=== PATIENT | male | born 1950 | race Caucasian/White ===

== ENCOUNTER 2018-05-12 13:04 | Day surgery (SDC) | payer MEDICARE, OTHER ==
[~2018-05-12] VITALS: Ht 170.2 cm; Wt 98.2 kg
[~2018-05-12 13:04] MED LIST: ALLEGRA 60MG TA60 MG PO; AQUAPHOR1 OIN TOP; ASPIRIN 81M81 MG/TA2 PO; CLARITIN 1010 MG/TAB PO; COUMADIN 1010 MG/TAB PO; COUMADIN 77.5 MG/TAB PO; FLONASE NASAL S16 GM NS; IMDUR 30MG30 MG/TAB PO; LASIX 40MG TABL40 MG PO; LIPITOR 40MG TA40 MG PO; LOPRESSOR 550 MG/TAB PO; MASON NATURAL2000 IU PO; NICODERM C21 MG/PATC TOP; NITROLINGU0.4 MG/ACT SL; PLAVIX 75MG TAB75 MG PO; PRILOSEC 20MG20 MG PO; PROCARDIA XL 6060 MG PO; RANEXA 500MG T500 MG PO; TOPROL XL 25MG25 MG PO; ZANTAC 7575 MG PO; ZESTRIL 5MG5 MG PO; ZOCOR 20MG20 MG PO
[2018-05-12] MEDS ORDERED: MEXITIL 150MG150 MG PO (13:29)
[2018-05-12] MEDS ORDERED: PLETAL50 MG PO (13:30)
[2018-05-12] MEDS ORDERED: STIOLTO RESPIMAT4 GM IH (13:31)
[2018-05-12 13:56] VITALS: BP 144/92; PULSE 100; TEMP 97.3
[2018-05-12 15:15] VITALS: BP 114/79; PULSE 94; TEMP 97
[2018-05-12 15:30] VITALS: BP 92/71; PULSE 79
[2018-05-12 15:45] VITALS: BP 114/61; PULSE 92
[2018-05-12 16:00] VITALS: BP 115/81; PULSE 79
== END 2018-05-12 16:36 | disposition home or self-care (01) ==
LOC: SDCO 13:04
DX: K22.70 Barrett's esophagus without dysplasia (principal); K21.9 Gastro-esophageal reflux disease without esophagitis; K44.9 Diaphragmatic hernia without obstruction or gangrene; K29.30 Chronic superficial gastritis without bleeding; I10 Essential (primary) hypertension; E78.00 Pure hypercholesterolemia, unspecified; I25.10 Atherosclerotic heart disease of native coronary artery without angina pectoris; Z95.1 Presence of aortocoronary bypass graft; Z95.5 Presence of coronary angioplasty implant and graft; Z79.899 Other long term (current) drug therapy; Z79.82 Long term (current) use of aspirin
CPT/HCPCS: J2250; J3010; J7030

== ENCOUNTER → 2018-10-16 | Outpatient (CLI) | payer MEDICARE, OTHER ==
[~2018-10-16] MED LIST changes: +MEXITIL 150MG150 MG PO; +PLETAL50 MG PO; +STIOLTO RESPIMAT4 GM IH
[2018-10-16 13:50] LABS: HEMATOCRIT 37.9 % (42.0-52.0); HEMOGLOBIN 12.9 g/dl (13.5-18.0); MEAN CELL VOLUME 98 fl (80.0-100.0); MEAN CORPUSCULAR HEMOGLOBIN 33 pg (27.0-31.0); MEAN CORPUSCULAR HGB CONC 34 g/dl (33.0-37.0); MEAN PLATELET VOLUME 9.6 fl (7.4-10.4); PLATELET COUNT 140 K/mm3 (130-400); RED BLOOD COUNT 3.88 M/mm3 (4.20-5.60)
[2018-10-16 14:19] LABS: CALCIUM 9.4 mg/dL (8.4-10.2); CREATININE, serum 1.57 mg/dL (0.66-1.25); POTASSIUM 4.8 mmol/L (3.4-5.0)
== END ==
LOC: COL.LAB 12:59
PROVIDERS: Internal Medicine Interventional Cardiology
DX: I82.531 Chronic embolism and thrombosis of right popliteal vein (principal)

== ENCOUNTER → 2018-11-11 | Outpatient (CLI) | payer MEDICARE, OTHER | LOC: COL.VAS 09:25 | DX: I73.9 Peripheral vascular disease, unspecified (principal) ==

== ENCOUNTER → 2019-01-05 | Outpatient (CLI) | payer MEDICARE, OTHER ==
[2019-01-05 13:28] LABS: HEMATOCRIT 37.8 % (42.0-52.0); HEMOGLOBIN 12.7 g/dl (13.5-18.0); MEAN CELL VOLUME 101 fl (80.0-100.0); MEAN CORPUSCULAR HEMOGLOBIN 34 pg (27.0-31.0); MEAN CORPUSCULAR HGB CONC 34 g/dl (33.0-37.0); PLATELET COUNT 147 K/mm3 (130-400); RED BLOOD COUNT 3.76 M/mm3 (4.20-5.60); REDCELL DISTRIBUTION WIDTH-CV 12.7 % (11.5-14.5)
[2019-01-05 13:38] LABS: ALBUMIN 4.1 gm/dL (3.5-5.0); BILIRUBIN,TOTAL 0.8 mg/dL (0.0-1.0); CALCIUM 9.2 mg/dL (8.4-10.2); CREATININE, serum 1.53 (0.66-1.25); POTASSIUM 4.6 mmol/L (3.4-5.0); TOTAL PROTEIN 7.4 gm/dL (6.4-8.2)
== END ==
LOC: COL.LAB 13:11
PROVIDERS: Internal Medicine Interventional Cardiology
DX: I73.9 Peripheral vascular disease, unspecified (principal)

== ENCOUNTER → 2019-02-09 | Outpatient (CLI) | payer MEDICARE, OTHER ==
[2019-02-09 12:46] LABS: HEMATOCRIT 37.9 % (42.0-52.0); HEMOGLOBIN 12.9 g/dl (13.5-18.0); MEAN CELL VOLUME 99 fl (80.0-100.0); MEAN CORPUSCULAR HEMOGLOBIN 34 pg (27.0-31.0); MEAN CORPUSCULAR HGB CONC 34 g/dl (33.0-37.0); MEAN PLATELET VOLUME 9.3 fl (7.4-10.4); PLATELET COUNT 159 K/mm3 (130-400); RED BLOOD COUNT 3.82 M/mm3 (4.20-5.60)
[2019-02-09 12:56] LABS: ALBUMIN 4.3 gm/dL (3.5-5.0); BILIRUBIN,TOTAL 0.7 mg/dL (0.0-1.0); CALCIUM 9.5 mg/dL (8.4-10.2); CREATININE, serum 1.59 (0.66-1.25); POTASSIUM 4.6 mmol/L (3.4-5.0); TOTAL PROTEIN 7.5 gm/dL (6.4-8.2)
== END ==
LOC: COL.LAB 12:18
PROVIDERS: Internal Medicine Interventional Cardiology
DX: I25.10 Atherosclerotic heart disease of native coronary artery without angina pectoris (principal)

== ENCOUNTER → 2020-07-05 | Outpatient (CLI) | payer MEDICARE, OTHER ==
[2020-07-05 14:11] LABS: TROPONIN-I < 0.012 ng/mL (0.000-0.035)
== END ==
LOC: ZCOL.LAB 13:35
PROVIDERS: Internal Medicine Interventional Cardiology
DX: E55.9 Vitamin D deficiency, unspecified (principal); R06.02 Shortness of breath

== ENCOUNTER → 2020-07-21 | Day surgery (SDC) | payer MEDICARE, OTHER ==
[~2020-07-21] VITALS: Ht 170.2 cm; Wt 98.5 kg
[2020-07-21] VITALS (11 sets, daily range): BP systolic 89–129; BP diastolic 55–87; PULSE 69–85; TEMP 97.9
[~2020-07-21] MED LIST changes: -LOPRESSOR 550 MG/TAB PO; -PRILOSEC 20MG20 MG PO; +PROTONIX 40MG T40 MG PO; +TOPROL XL100 MG PO
[2020-07-21 13:15] LABS: HEMOGLOBIN 12.5 g/dl (13.5-18.0); MEAN CELL VOLUME 99 fl (80.0-100.0); MEAN CORPUSCULAR HEMOGLOBIN 34 pg (27.0-31.0); MEAN CORPUSCULAR HGB CONC 34 g/dl (33.0-37.0); MEAN PLATELET VOLUME 9.3 fl (7.4-10.4); PLATELET COUNT 139 K/mm3 (130-400); REDCELL DISTRIBUTION WIDTH-CV 13.2 % (11.5-14.5)
[2020-07-21 13:17] LABS: HEMATOCRIT 36.6 % (42.0-52.0)
[2020-07-21 13:18] LABS: CALCIUM 9.4 mg/dL (8.4-10.2); CREATININE, serum 1.39 (0.66-1.25); INR 1.2 (0.8-3.0); POTASSIUM 4.9 mmol/L (3.4-5.0); PROTHROMBIN TIME 12.9 SECONDS (9.7-12.8)
--- NOTE | 2020-07-21 13:45 | NUR ---
SEE MERGE DOCUMENTATION FOR MEDICATION ADMINISTRATION TIMES AND INTRA/POST PROCEDURE SEDATION ASSESSMENTS. LEFT HAND BARBEAU TEST POSITIVE. BILATERAL DP PULSES LOCATED VIA DOPPLER.
--- NOTE | 2020-07-21 15:15 | NUR ---
Pt is back from [employer], bs report from Oscar MORIN. Pt is gcs 15, pwd, no complaints. TR band to left wrist, compressing left ulnar artery, cms intact distal, some discoloration to fingers 2-4, but TORCH SOLDERER <3 seconds, sensation intact, good pleth on pulse ox monitor. wctm. lunch ordered. call light in reach. telesales advisor notified of need to monitor patient who is in sinus rhythm at this time.
--- NOTE | 2020-07-21 19:46 | NUR ---
Pt has done well during his recovery. TR band was deflated with no problems, and left ulnar puncture site was dressed with a bandaid, folded 2x2 and coban for mild compression dressing. Pt has been ambulatory in his room with steady gait, he has eaten with no problem, and took a nice nap. IV was dc'd with cath intact, dressing was applied. I reviewed dc and fu instructions with pt who verbalized understanding. Pt was escorted to exit via wheelchair where his picked him up.
== END ==
LOC: COL.CAR 11:53
PROVIDERS: Internal Medicine Interventional Cardiology
DX: I25.10 Atherosclerotic heart disease of native coronary artery without angina pectoris (principal); I73.9 Peripheral vascular disease, unspecified; R94.39 Abnormal result of other cardiovascular function study; R53.83 Other fatigue; I25.2 Old myocardial infarction; I10 Essential (primary) hypertension; E78.5 Hyperlipidemia, unspecified; F17.210 Nicotine dependence, cigarettes, uncomplicated; Z79.82 Long term (current) use of aspirin; Z79.02 Long term (current) use of antithrombotics/antiplatelets; Z95.1 Presence of aortocoronary bypass graft
CPT/HCPCS: J1644; J2250; J3010; Q9967

== ENCOUNTER 2020-09-26 09:06 | Outpatient (RCR) | payer MEDICARE, OTHER ==
--- NOTE | 2020-09-22 12:22 | NUR ---
LMOM WITH INSTRUCTIONS AND CALL BACK NUMBER. PT IS ON PLAVIX.
--- NOTE | 2020-09-22 14:04 | NUR ---
SPOKE TO PT AND WENT OVER INSTRUCTIONS, MEDS AND ALLERGIES. PT HAS A LUBRICATING SPECIALIST
[~2020-09-26] VITALS: Ht 170.2 cm; Wt 96.3 kg
[2020-09-26] VITALS (25 sets, daily range): BP systolic 92–131; BP diastolic 41–81; PULSE 72–91
[2020-09-26] MEDS ORDERED: MASON NATURAL2000 IU PO (09:48)
--- NOTE | 2020-09-26 10:45 | NUR ---
DR MAN PRESENT
--- NOTE | 2020-09-26 10:50 | NUR ---
FENTANYL [address] MAN
--- NOTE | 2020-09-26 11:05 | NUR ---
PT HAS SMALL PNUEMO AND WAS GIVEN 25 MCG FOR DISCOMFORT
--- NOTE | 2020-09-26 14:15 | NUR ---
Oxygen increased to 6L/min per verbal instruction of Dr Can. He states he would like oxygen to run between 4-6L/min as pt can tolerate. Will repeat CXR at 1530. Pt aware. Call light in reach.
--- NOTE | 2020-09-26 16:04 | NUR ---
Pt ambulated to restroom while observed by Dr. Hudson. Gait steady with cane. Pt denies any shortness of air worse than his usual or increased chest pain. Upon return to room, sats range from 89-91% on room air. Over several minutes sats improve to 94-95% on room air. Return instructions reviewed at length with pt by nurse and radiologist, pt expresses understaning.
--- NOTE | 2020-09-26 16:45 | NUR ---
Pt assisted out by wheelchair to 's car. Respirations remains even and unlabored, he denies shortness of breath. He will return tomorrow morning for repeat chest xray.
--- NOTE | 2020-09-26 16:50 | NUR ---
PROCEDURE COMPLETE. DR REILLY TOOK SEVERAL SAMPLES
== END 2020-12-25 | disposition still patient (30) ==
LOC: COL.RAD
DX: J93.9 Pneumothorax, unspecified (principal); R91.1 Solitary pulmonary nodule; Z95.1 Presence of aortocoronary bypass graft
CPT/HCPCS: J3010

== ENCOUNTER → 2020-10-02 | Outpatient (CLI) | payer MEDICARE, OTHER | LOC: COL.RAD | DX: J93.9 Pneumothorax, unspecified (principal) ==

== ENCOUNTER → 2020-10-06 | Outpatient (CLI) | payer MEDICARE, OTHER | LOC: COL.RAD | DX: J93.9 Pneumothorax, unspecified (principal) ==

== ENCOUNTER → 2020-10-13 | Outpatient (CLI) | payer MEDICARE, OTHER | LOC: COL.RAD 11:28 | DX: J93.9 Pneumothorax, unspecified (principal); Z95.1 Presence of aortocoronary bypass graft ==

== ENCOUNTER 2022-01-13 02:06 | Inpatient (IN) | payer MEDICARE, OTHER ==
[2022-01-13] VITALS (10 sets, daily range): BP systolic 103–128; BP diastolic 65–86; PULSE 16–100; TEMP 97.6–98.2
[~2022-01-13] VITALS: Ht 170.2 cm; Wt 95.3 kg
[2022-01-13 02:35] LABS: BASO % 0.4 % (0.0-2.0); EOS % 0.5 % (0.0-4.0); GRAN % 77.4 % (42.2-75.2); HEMOGLOBIN 11.9 g/dl (13.5-18.0); LYMPH # 1.1 K/mm3 (1.2-3.4); MEAN CELL VOLUME 95 fl (80.0-100.0); MEAN CORPUSCULAR HEMOGLOBIN 31 pg (27-31); MEAN CORPUSCULAR HGB CONC 32 g/dl (33.0-37.0); MEAN PLATELET VOLUME 10.1 fl (7.4-10.4); MONO # 0.6 K/mm3 (0.1-0.6); MONO % 7.3 % (1.7-9.3); PLATELET COUNT 163 K/mm3 (130-400); RED BLOOD COUNT 3.88 M/mm3 (4.20-5.60); REDCELL DISTRIBUTION WIDTH-CV 15.2 % (11.5-14.5)
[2022-01-13 02:40] LABS: HEMATOCRIT 36.9 % (42.0-52.0)
[2022-01-13 02:53] LABS: ALBUMIN 3.5 gm/dL (3.4-4.8); BILIRUBIN,TOTAL 1.2 mg/dL (0.2-1.2); CALCIUM 9.2 mg/dL (8.4-10.2); CREATININE, serum 1.64 mg/dL (0.72-1.25); POTASSIUM 4.4 mmol/L (3.5-4.5)
[2022-01-13 05:15] LABS: COLLECTION METHOD CLEAN CATCH
[2022-01-13 05:38] LABS: MUCOUS Present (NOT PRESENT); PH 6 (5-8); SQUAMOUS EPITHELIAL 0-2 /hpf (0-10); URINE APPEARANCE Clear (CLEAR/HAZY); URINE BACTERIA None Seen /hpf (NONE SEEN); URINE BILIRUBIN Negative (NEGATIVE); URINE BLOOD Negative (NEGATIVE); URINE COLOR Yellow (YELLOW); URINE GLUCOSE Negative (NEGATIVE); URINE KETONE Negative (NEGATIVE); URINE LEUKOCYTE ESTERASE Negative (NEGATIVE); URINE NITRATE Negative (NEGATIVE); URINE PROTEIN(semi-quant) Negative (NEGATIVE); URINE RBC None Seen /hpf (0-2)
--- NOTE | 2022-01-13 07:09 | NUR ---
PATIENT UP TO ROOM 323 AT 0600. ALERT AND ORIENTED. AMBULATED TO BATHROOM X1 ASSIST WITH CANE AND HAD UNMEASURED CLEAR YELLOW VOID. AMBULATED BACK TO BED. 2L O2 VIA NC. IV TO L WRIST PATENT AND FLUSHED. CHANGED TO YELLOW GOWN AND SOCKS, FALL RISKS IN PLACE. MED RX COMPLETED. ADMISSION ASSESSMENT COMPLETED. SHIFT REPORT TO DAY SHIFT.
--- NOTE | 2022-01-13 09:40 | NUR ---
PT HAD PANIC ATTACK THIS AM. STAFF ABLE TO CALM PT DOWN AND THEN TRANSFER TO RECLINER. PT MUCH CALMER SITTING UP IN RECLINER. PT BECAME SOB WHLIE LAYING IN BED WHICH LED TO PANIC FEELING FOR PT.
--- NOTE | 2022-01-13 11:41 | NUR ---
ASSISTED DR QUIROGA WITH BEDSIDE THRORACENTESIS, 860 MLS OF FLUIDS REMOVED AND SENT TO LAB. PT TOLERATED WELL, PT ON POST OP VITALS PER ORDER.
[2022-01-13 12:10] LABS: PLEURAL FLUID RBC 1000 /mm3 (0-0); PLEURAL FLUID WBC 357 /mm3
[2022-01-13 12:11] LABS: PLEURAL FLUID APPEARANCE CLEAR; PLEURAL FLUID COLOR YELLOW
--- NOTE | 2022-01-13 13:20 | NUR ---
RASHMI met with pt to complete intake. Pt lives at home with his , "SON" [phone]. Pt reports he is independent on ADLs, but does use a cane, shower sool, CPAP. Pt reports he gets services from [place] and medications from [facility]. PA is Anitta from [place]. Pt reports no DPOA-HC and is waiting until February when hes family comes to complete WILL. PT recommends SNF. Referral faxed to [facility] and [facility]. DC: pending referrals.
--- NOTE | 2022-01-13 21:00 | NUR ---
PT SITTING UP IN RECLINER AT BEDSIDE. IS ALERT AND ORIENTED X4. HAS O2 @1L/NC. HAS LARGE BANDAID TO LEFT POSTERIOR BACK S/P THORACENTESIS. HAS BLE PITTING EDEMA FROM FEET TO THIGHS. ABD DISTENDED AND TIGHT. VOIDING PER URINAL YELLOW URINE. INT TO LFA, FLUSHES WELL, IV LASIX GIVEN. BRUISES TO BILATERAL ARMS. HAS DISCOLORATED LOWER LEGS R/T PVD. HAS CPAP FROM HOME.
[2022-01-14] VITALS (7 sets, daily range): BP systolic 109–127; BP diastolic 65–94; PULSE 75–118; TEMP 97.7–98
--- NOTE | 2022-01-14 06:00 | NUR ---
PT SITTING AT BEDSIDE, AM MED GIVEN. DENIES PAIN AT THIS TIME.
[2022-01-14 06:29] LABS: BASO % 0.2 % (0.0-2.0); GRAN # 4.1 K/mm3 (1.4-6.5); GRAN % 89.5 % (42.2-75.2); HEMOGLOBIN 10.8 g/dl (13.5-18.0); LYMPH # 0.4 K/mm3 (1.2-3.4); LYMPH % 7.9 % (20.0-51.0); MEAN CELL VOLUME 95 fl (80.0-100.0); MEAN CORPUSCULAR HEMOGLOBIN 31 pg (27-31); MEAN CORPUSCULAR HGB CONC 33 g/dl (33.0-37.0); MEAN PLATELET VOLUME 9.9 fl (7.4-10.4); MONO # 0.1 K/mm3 (0.1-0.6); MONO % 2.2 % (1.7-9.3); PLATELET COUNT 157 K/mm3 (130-400); RED BLOOD COUNT 3.47 M/mm3 (4.20-5.60)
[2022-01-14 06:42] LABS: CALCIUM 9.2 mg/dL (8.4-10.2); CREATININE, serum 1.89 mg/dL (0.72-1.25); POTASSIUM 3.7 mmol/L (3.5-4.5)
[2022-01-14 06:49] LABS: HEMATOCRIT 33.1 % (42.0-52.0)
--- NOTE | 2022-01-14 10:02 | NUR ---
Initial visit; Patient thanked Accountant Controller for looking in on her and offering God's blessings. Patient was receptive to having Accountant Controller keep him in her prayers.
[2022-01-14 11:17] LABS: THYROID STIMULATING HORMONE 1.555 uIU/mL (0.350-4.940)
--- NOTE | 2022-01-14 12:51 | NUR ---
PATIENT ALERT AND ORIENTED X3. VSS. PATIENT DENIES ANY PAIN. PATIENT ON 2L O2. ASSESSMENT PERFORMED. AM MEDS ADMINISTERED. PATIENT INSTRUCTED ON NPO DUE TO MOOK PROCEDURE. CONSENT OBTAINED. PATIENT DENIED ANY QUESTIONS OR CONCERNS. CALL LIGHT WITHIN REACH. CHAIR ALARM ON.
--- NOTE | 2022-01-14 14:24 | NUR ---
Marlee, at [facility], reports that they are full at this time. RASHMI met with the patient, his , and daughter (June, ph#[phone]) to review discharge plan and to update on referrals. The patient would like to see how he does after his procedure today and what the team recommends, but he is open to SNF at [facility]. He is still comtemplating home with home health. The patient's family is supportive of his decision. RASHMI contacted and faxed updates to Marv at [facility]. They are still reviewing the referral. *Discharge plan: SNF vs home health*
--- NOTE | 2022-01-14 15:19 | NUR ---
Marlee, at [facility], reports that they may have a bed available by the end of this week. RASHMI faxed [facility] updates.
--- NOTE | 2022-01-14 17:16 | NUR ---
PATIENT OFF OF FLOOR FOR PROCEDURE
[2022-01-14 17:45] LABS: BODY FLUID PH (AMS) 8 (())
[2022-01-15] VITALS (7 sets, daily range): BP systolic 112–146; BP diastolic 80–89; PULSE 73–107; TEMP 97.5–98.4
--- NOTE | 2022-01-15 00:12 | NUR ---
Recently received report. Pt was resting with eyes closed, even non labored breathing. No complaints of pain at this time. Pt does have CPAP on, O2 sats 88% at this time. Notified RT which placed him on 2L with CPAP. Pt continues to be resting and fell back asleep after assessment/vitals. No complaints or needs verbalized, call light within reach
[2022-01-15 07:04] LABS: GRAN % 89.6 % (42.2-75.2); HEMOGLOBIN 10.8 g/dl (13.5-18.0); LYMPH % 6.1 % (20.0-51.0); MEAN CELL VOLUME 96 fl (80.0-100.0); MEAN CORPUSCULAR HEMOGLOBIN 31 pg (27-31); MEAN CORPUSCULAR HGB CONC 32 g/dl (33.0-37.0); MEAN PLATELET VOLUME 10.2 fl (7.4-10.4); MONO # 0.2 K/mm3 (0.1-0.6); MONO % 3.8 % (1.7-9.3); PLATELET COUNT 160 K/mm3 (130-400); RED BLOOD COUNT 3.51 M/mm3 (4.20-5.60); REDCELL DISTRIBUTION WIDTH-CV 15.2 % (11.5-14.5)
[2022-01-15 07:06] LABS: CALCIUM 9.8 mg/dL (8.4-10.2); CREATININE, serum 2.48 mg/dL (0.72-1.25)
--- NOTE | 2022-01-15 07:20 | NUR ---
INCREASING CREAT AND BUN LEVELS REPORTED TO MCKENNA HALL. PATIENT NOTED TO HAVE HISTORY OF CKD WITH BASELINE CREAT OF 1.4. LEVELS CONT TO RISE DAILY. LASIX BEING HELD AT THIS TIME DUE TO THIS. TO POSSIBLY CONSULT NEPHRO
[2022-01-15 07:23] LABS: HEMATOCRIT 33.7 % (42.0-52.0)
[2022-01-15 07:24] LABS: LYMPH # 0.3 K/mm3 (1.2-3.4)
--- NOTE | 2022-01-15 11:30 | NUR ---
Roxane: Bahai Situation: Pastry Sous Chef went to room on rounds Background: PT had his and daughter in the room with him. Pastry Sous Chef prayed with all three. Assessment: All included appreciated the visit Recommendation: Pastry Sous Chef will follow up as needed
--- NOTE | 2022-01-15 13:34 | NUR ---
SW faxed updates to [facility] and [facility].
--- NOTE | 2022-01-15 13:49 | NUR ---
Marv, at [facility], reports that they can accept the patient for a skilled stay.
--- NOTE | 2022-01-15 15:00 | NUR ---
CALL RECIEVED FROM DR PABLO TO GIVE PATIENT A ONE TIME 40MG IV DOSE OF LASIX DUE TO FLUID BUILD UP AND EDEMA. WILL CONT TO MONITOR KIDNEY FUNCTION AND URINE OUTPUT.
--- NOTE | 2022-01-15 20:50 | NUR ---
Pt. sitting up at side of bed. Pt. is a&OX3, assessment complete. INT to lt forearm patent. Pt. assisted to and from the bathroom with standby assist and walker. Pt. does get SOA with ambulation. Pt. on 2L NC. Pt. repositions for comfort. Pt. denies further needs, call light within reach.
[2022-01-16 03:46] VITALS: BP 158/89; PULSE 79; TEMP 98.3
[2022-01-16 06:28] LABS: HEMOGLOBIN 11.1 g/dl (13.5-18.0); MEAN CELL VOLUME 96 fl (80.0-100.0); MEAN CORPUSCULAR HEMOGLOBIN 31 pg (27-31); MEAN CORPUSCULAR HGB CONC 32 g/dl (33.0-37.0); MEAN PLATELET VOLUME 10.1 fl (7.4-10.4); PLATELET COUNT 154 K/mm3 (130-400); REDCELL DISTRIBUTION WIDTH-CV 15.1 % (11.5-14.5)
[2022-01-16 06:31] LABS: HEMATOCRIT 34.6 % (42.0-52.0)
[2022-01-16 06:43] LABS: ALBUMIN 3.1 gm/dL (3.4-4.8); CALCIUM 9.2 mg/dL (8.4-10.2); CREATININE, serum 2.74 mg/dL (0.72-1.25); MAGNESIUM 2.5 mg/dL (1.6-2.6); PHOSPHOROUS 5.7 mg/dL (2.3-4.7); POTASSIUM 4.4 mmol/L (3.5-4.5)
[2022-01-16 07:48] VITALS: BP 151/83; PULSE 76; TEMP 98.9
[2022-01-16 07:58] LABS: LYMPHOCYTE 8 % (20.0-51.0); NEUTROPHILS 88 % (42.0-75.2)
[2022-01-16 08:02] LABS: PLATELET ESTIMATE NORMAL (NORMAL)
--- NOTE | 2022-01-16 09:00 | NUR ---
Pt doing okay this morning. He has no complaints of pain. Pt using CPAP with O2 at night and O2 per NC during the day. He is on 2L. Pt is standby assist to the bathroom. Tolerating breakfast with no complaints. Pt reports that his daughter will be here later this am. No needs verbalized, will continue to monitor
[2022-01-16 11:50] VITALS: BP 138/87; PULSE 75; TEMP 97.4
--- NOTE | 2022-01-16 13:00 | NUR ---
Hosp and cardiology has been in to see pt, new orders received. Dr Stafford did talk with pts daughter, Antonella, on the phone with updates. All questions answered.
--- NOTE | 2022-01-16 13:47 | NUR ---
RASHMI met with the patient to update on [facility] acceptance. The patient verbalized understanding and states that he would like to go ahead and pursue SNF at [facility]. SW faxed updates to [facility] and [facility]. *Discharge plan: [facility] SNF*
[2022-01-16 15:21] VITALS: BP 134/82; PULSE 66; TEMP 97.5
--- NOTE | 2022-01-16 16:00 | NUR ---
Pt moved to another room so that computer mount can be changed. Pt getting tired and is hoping to get some rest. New IV was started in his left forearm, previous IV was leaking. PATIENCE Iraheta with nephrology was in to see pt, new orders wrote. Pt verbalized understanding on the fluid restrictions.
[2022-01-16 19:19] VITALS: BP 139/80; PULSE 66; TEMP 97.6
--- NOTE | 2022-01-16 22:02 | NUR ---
Pt is sitting up in his recliner during shift exchange. Assessment and medication administration completed without difficulty. Pt is A&Ox4 and pleasant. Pt denies pain at this time but does exhibit dyspnea on exertion when ambulating to the restroom. All other needs met at this time, call light within reach.
[2022-01-16 23:51] VITALS: BP 149/93; PULSE 65; TEMP 98
[2022-01-17 02:53] VITALS: BP 145/91; PULSE 66
[2022-01-17 06:41] LABS: GRAN # 5.3 K/mm3 (1.4-6.5); HEMOGLOBIN 11.9 g/dl (13.5-18.0); LYMPH # 0.3 K/mm3 (1.2-3.4); LYMPH % 5.5 % (20.0-51.0); MEAN CELL VOLUME 94 fl (80.0-100.0); MEAN CORPUSCULAR HEMOGLOBIN 31 pg (27-31); MEAN CORPUSCULAR HGB CONC 33 g/dl (33.0-37.0); MEAN PLATELET VOLUME 10.2 fl (7.4-10.4); MONO # 0.3 K/mm3 (0.1-0.6); MONO % 5.5 % (1.7-9.3); PLATELET COUNT 145 K/mm3 (130-400); RED BLOOD COUNT 3.87 M/mm3 (4.20-5.60); REDCELL DISTRIBUTION WIDTH-CV 14.8 % (11.5-14.5)
[2022-01-17 06:48] LABS: HEMATOCRIT 36.2 % (42.0-52.0)
[2022-01-17 07:04] LABS: ALBUMIN 3.2 gm/dL (3.4-4.8); CALCIUM 9.3 mg/dL (8.4-10.2); CREATININE, serum 2.82 mg/dL (0.72-1.25); MAGNESIUM 2.8 mg/dL (1.6-2.6); PHOSPHOROUS 5.6 mg/dL (2.3-4.7); POTASSIUM 4.5 mmol/L (3.5-4.5)
[2022-01-17 07:34] VITALS: BP 154/92; PULSE 67; TEMP 97.6
--- NOTE | 2022-01-17 08:00 | NUR ---
Patient sitting up in the recliner eating breakfast. A&Ox4. 3L NC O2, no reported SOB. IV CDI. Denies pain and discomfort. Independent with feeds. Nurse instructed the patient to elevate legs. Patient verbalized an understanding. Call light within reach
[2022-01-17 12:00] VITALS: BP 142/88; PULSE 60
--- NOTE | 2022-01-17 15:49 | NUR ---
SW faxed updates to [facility] and [facility].
[2022-01-17 16:17] VITALS: BP 143/86; PULSE 62; TEMP 97.3
--- NOTE | 2022-01-17 17:59 | NUR ---
Patient resting in bed, A&Ox4. VSS 2L NC O2, no complaints of SOB. IV CDI. Denies pain and discomfort. No further needs expressed. Call light within reach
[2022-01-17 19:52] VITALS: BP 153/84; PULSE 63
--- NOTE | 2022-01-17 21:58 | NUR ---
ASSESSMENT COMPLETE. PT. LYING IN BED WITH CPAP ON. A&O. NO COMPLAINTS OF PAIN. PT. WAS ASSISTED TO THE BATHROOM. DYSPNEA ON EXERTION. INT TO LEFT FOAREARM PATENT. CALL LIGHT IN REACH. NO FURTHER NEEDS AT THIS TIME.
[2022-01-17 23:51] VITALS: BP 142/90; PULSE 62
[2022-01-18 03:19] VITALS: BP 162/86; PULSE 68
[2022-01-18 06:46] LABS: BASO % 0.1 % (0.0-2.0); GRAN # 7.8 K/mm3 (1.4-6.5); GRAN % 83.1 % (42.2-75.2); HEMATOCRIT 38.4 % (42.0-52.0); HEMOGLOBIN 12.1 g/dl (13.5-18.0); LYMPH # 0.7 K/mm3 (1.2-3.4); LYMPH % 7.4 % (20.0-51.0); MEAN CELL VOLUME 97 fl (80.0-100.0); MEAN CORPUSCULAR HEMOGLOBIN 31 pg (27-31); MEAN CORPUSCULAR HGB CONC 32 g/dl (33.0-37.0); MEAN PLATELET VOLUME 10.7 fl (7.4-10.4); MONO # 0.8 K/mm3 (0.1-0.6); MONO % 8.5 % (1.7-9.3); PLATELET COUNT 151 K/mm3 (130-400); RED BLOOD COUNT 3.97 M/mm3 (4.20-5.60); REDCELL DISTRIBUTION WIDTH-CV 14.8 % (11.5-14.5)
[2022-01-18 07:03] LABS: ALBUMIN 3.3 gm/dL (3.4-4.8); CALCIUM 9.5 mg/dL (8.4-10.2); CREATININE, serum 2.82 mg/dL (0.72-1.25); MAGNESIUM 2.9 mg/dL (1.6-2.6); PHOSPHOROUS 5.3 mg/dL (2.3-4.7); POTASSIUM 4.8 mmol/L (3.5-4.5)
[2022-01-18 07:20] VITALS: BP 142/82; PULSE 66; TEMP 97.5
--- NOTE | 2022-01-18 11:25 | NUR ---
Patient alert and oriented x3. VSS. Patient here for CHF exacerbation, COPD, and left pleural effusion. 2L O2 per NC. O2 saturation within accepted parameters. IV to left FA, flushes well. Patient denies pain. Patient voiding. BLE edematous 2+. 1500cc Fluid restrtion enforced. Assessment performed. Am meds administered. Patient resting with call light near.
[2022-01-18 11:39] VITALS: BP 133/88; PULSE 56; TEMP 98.4
--- NOTE | 2022-01-18 13:44 | NUR ---
RASHMI staffed with the hospitalist. The hospitalist believes that the patient will be here through the weekend. RASHMI notified [facility] and [facility]. SW to fax updates to [facility] and [facility].
[2022-01-18 16:00] VITALS: BP 140/83; PULSE 60; TEMP 97.4
[2022-01-18 21:03] VITALS: BP 142/78; PULSE 65; TEMP 97.5
--- NOTE | 2022-01-18 21:41 | NUR ---
ASSESSMENT COMPLETE. PT. SITTING IN CHAIR. A&O. PT. WAS ASSISTTED TO BATHROOM AND THEN INTO BED. DYSPNEA ON EXERTION. CPAP IN PLACE. NO COMPLAINTS OF PAIN OR NAUSEA. CALL LIGHT IN REACH. NO FURTHER NEEDS.
[2022-01-18 23:39] VITALS: BP 148/90; PULSE 67
[2022-01-19 04:23] VITALS: BP 145/84; PULSE 62; TEMP 97.5
[2022-01-19 06:24] LABS: BASO % 0.1 % (0.0-2.0); EOS % 0.2 % (0.0-4.0); GRAN # 7.7 K/mm3 (1.4-6.5); GRAN % 83.2 % (42.2-75.2); HEMATOCRIT 38.4 % (42.0-52.0); HEMOGLOBIN 12.1 g/dl (13.5-18.0); LYMPH # 0.8 K/mm3 (1.2-3.4); LYMPH % 8.3 % (20.0-51.0); MEAN CELL VOLUME 97 fl (80.0-100.0); MEAN CORPUSCULAR HEMOGLOBIN 31 pg (27-31); MEAN CORPUSCULAR HGB CONC 32 g/dl (33.0-37.0); MEAN PLATELET VOLUME 10.8 fl (7.4-10.4); MONO # 0.7 K/mm3 (0.1-0.6); MONO % 7.6 % (1.7-9.3); PLATELET COUNT 139 K/mm3 (130-400); RED BLOOD COUNT 3.97 M/mm3 (4.20-5.60); REDCELL DISTRIBUTION WIDTH-CV 14.9 % (11.5-14.5)
[2022-01-19 06:39] LABS: ALBUMIN 3.2 gm/dL (3.4-4.8); CALCIUM 9.5 mg/dL (8.4-10.2); CREATININE, serum 2.65 mg/dL (0.72-1.25); MAGNESIUM 2.9 mg/dL (1.6-2.6); PHOSPHOROUS 4.8 mg/dL (2.3-4.7); POTASSIUM 4.5 mmol/L (3.5-4.5)
[2022-01-19 07:35] VITALS: BP 138/81; PULSE 64; TEMP 97.6
--- NOTE | 2022-01-19 10:38 | NUR ---
PATIENT ALERT AND ORIENTED X3. VSS. PATIENT HERE FOR CHF EXACERBATION, COPD AND LEFT PLEURAL EFFUSION. IV FLUSHES WELL. BLE EDEMA 3+ AND TRUNKAL EDEMA 2+. PATIENT CONTINUES TO DANGLE FEET WHILE IN CHAIR. PATIENT AWARE AND COMPLIANT WITH FLUID RESTRICTION OF 1500CC. PATIENT IN CHAIR WITH FEET PROPPED AND PILLOW BENEATH KNEES. CALL LIGHT WITHIN REACH.
[2022-01-19 12:21] VITALS: BP 135/60; PULSE 65; TEMP 97.8
[2022-01-19 16:16] VITALS: BP 137/74; PULSE 79; TEMP 98.5
[2022-01-19 19:31] VITALS: BP 148/75; PULSE 65; TEMP 97.5
--- NOTE | 2022-01-19 19:50 | NUR ---
Pt. sitting up in bed. Pt. is a&OX3, assessment complete. INT to lt. forearm. Pt. denies pain and other needs, call light within reach.
[2022-01-20 00:33] VITALS: BP 149/76; PULSE 64; TEMP 97.8
[2022-01-20 04:21] VITALS: BP 145/84; PULSE 52
[2022-01-20 07:02] LABS: CALCIUM 9.6 mg/dL (8.4-10.2); CREATININE, serum 2.3 mg/dL (0.72-1.25); MAGNESIUM 2.8 mg/dL (1.6-2.6); PHOSPHOROUS 4.4 mg/dL (2.3-4.7); POTASSIUM 4.2 mmol/L (3.5-4.5)
[2022-01-20 07:28] VITALS: BP 142/78; PULSE 62; TEMP 97.5
[2022-01-20 08:14] LABS: EOS % 0.4 % (0.0-4.0); GRAN % 84.5 % (42.2-75.2); HEMOGLOBIN 11.6 g/dl (13.5-18.0); LYMPH # 0.6 K/mm3 (1.2-3.4); LYMPH % 8.9 % (20.0-51.0); MEAN CELL VOLUME 95 fl (80.0-100.0); MEAN CORPUSCULAR HEMOGLOBIN 30 pg (27-31); MEAN CORPUSCULAR HGB CONC 32 g/dl (33.0-37.0); MEAN PLATELET VOLUME 10.7 fl (7.4-10.4); MONO # 0.4 K/mm3 (0.1-0.6); MONO % 5.5 % (1.7-9.3); PLATELET COUNT 144 K/mm3 (130-400); RED BLOOD COUNT 3.86 M/mm3 (4.20-5.60); REDCELL DISTRIBUTION WIDTH-CV 15.2 % (11.5-14.5)
[2022-01-20 08:25] LABS: HEMATOCRIT 36.6 % (42.0-52.0)
[2022-01-20] MEDS ORDERED: CORDARONE200 MG/TAB PO (09:13)
[2022-01-20] MEDS ORDERED: TOPROL XL 50MG50 MG PO (09:14)
[2022-01-20] MEDS ORDERED: PROTONIX 40MG T40 MG PO (09:14)
[2022-01-20 12:11] VITALS: BP 157/76; PULSE 64; TEMP 97.8
--- NOTE | 2022-01-20 12:51 | NUR ---
SW informed that patient would be discharging on this day to [facility]. DC documenation faxed to facility and facility staff member called to coordinate transfer. Patient due to be picked up at 1pm on this day. Nothing further.
--- NOTE | 2022-01-20 14:42 | NUR ---
PATIENT TRANSFERRED TO VIA [facility]. REPORT CALLED TO SHAHRAM. PATIENT ESCORTED OUT VIA WHEELCHAIR. IV DC'D.
[2022-01-26] MEDS ORDERED: CORDARONE200 MG/TAB PO (12:29)
== END 2022-01-20 13:20 | disposition swing bed (61) | DRG 291 ==
LOC: COL.ER 02:06 → SURG 05:01 → MEDICAL 01-18 21:17 → SURG 01-18 21:17
PROVIDERS: Family Medicine; Internal Medicine; Internal Medicine Pulmonary Disease; Nurse Practitioner; ADMIT Student in an Organized Health Care Education/Training Program
PROC: 0W9B3ZZ Drainage of Left Pleural Cavity, Percutaneous Approach (ICD-10-PCS; principal; 2022-01-13)
PROC: 5A2204Z Restoration of Cardiac Rhythm, Single (ICD-10-PCS; 2022-01-14)
DX: I13.0 Hypertensive heart and chronic kidney disease with heart failure and stage 1 through stage 4 chronic kidney disease, or unspecified chronic kidney disease (principal); J96.01 Acute respiratory failure with hypoxia; I50.33 Acute on chronic diastolic (congestive) heart failure; J44.1 Chronic obstructive pulmonary disease with (acute) exacerbation; N17.9 Acute kidney failure, unspecified; J91.8 Pleural effusion in other conditions classified elsewhere; N18.9 Chronic kidney disease, unspecified; I25.10 Atherosclerotic heart disease of native coronary artery without angina pectoris; I48.91 Unspecified atrial fibrillation; D64.9 Anemia, unspecified; I73.9 Peripheral vascular disease, unspecified; G47.33 Obstructive sleep apnea (adult) (pediatric); F17.210 Nicotine dependence, cigarettes, uncomplicated; R59.1 Generalized enlarged lymph nodes; R91.1 Solitary pulmonary nodule; K21.9 Gastro-esophageal reflux disease without esophagitis; M19.90 Unspecified osteoarthritis, unspecified site; E78.5 Hyperlipidemia, unspecified; I27.20 Pulmonary hypertension, unspecified; Z20.822 Contact with and (suspected) exposure to COVID-19; I25.2 Old myocardial infarction; Z79.82 Long term (current) use of aspirin; Z72.89 Other problems related to lifestyle; Z95.1 Presence of aortocoronary bypass graft; Z86.718 Personal history of other venous thrombosis and embolism; Z79.01 Long term (current) use of anticoagulants; Z99.81 Dependence on supplemental oxygen; Z87.19 Personal history of other diseases of the digestive system
CPT/HCPCS: 99223-AI; 99232-AI; 99233-AI; 99239; A9270; J1940; J2704; J2920; J7512; Q9967